=== PATIENT | male | born 1950 | race Caucasian/White ===

== ENCOUNTER 2016-08-04 12:37 | Emergency (ER) | payer MEDICARE ==
[~2016-08-04 12:37] MED LIST: ALLOPURINOL300 MG PO; LEVAQUIN750 MG PO; LISINOPRIL-HCT1 EAC1 PO; NAPROXEN500 MG PO; PRILOSEC20 MG PO; TOPROL XL 50 MG50 MG PO; ZOFRAN4 MG PO
== END 2016-08-04 16:48 | disposition home or self-care (01) ==
LOC: FER 12:37
DX: M54.42 Lumbago with sciatica, left side (principal); M47.816 Spondylosis without myelopathy or radiculopathy, lumbar region; I25.2 Old myocardial infarction; I11.9 Hypertensive heart disease without heart failure; M19.90 Unspecified osteoarthritis, unspecified site; M10.9 Gout, unspecified; M06.9 Rheumatoid arthritis, unspecified; Z88.8 Allergy status to other drugs, medicaments and biological substances
CPT/HCPCS: 72110; J1100; J1885

== ENCOUNTER 2020-07-15 14:44 | Emergency (ER) | payer MEDICARE ==
[~2020-07-15 14:44] MED LIST changes: +PLAQUENIL200 MG PO; +TERAZOSIN HCL10 MG PO; +ZESTRIL2.5 MG PO
== END 2020-07-15 17:23 | disposition home or self-care (01) ==
LOC: FER 14:44
DX: M54.12 Radiculopathy, cervical region (principal); I10 Essential (primary) hypertension; Z87.891 Personal history of nicotine dependence; Z88.8 Allergy status to other drugs, medicaments and biological substances; Z79.899 Other long term (current) drug therapy
CPT/HCPCS: 72125

== ENCOUNTER 2021-08-17 19:12 | Emergency (ER) | payer MEDICARE ==
[2021-08-17 20:50] LABS: BASOPHIL 0.5 % (0-2); EOSINOPHIL 1.9 % (0-7); HGB 12.9 g/dl (13.2-18.0); LYMPHOCYTE 11.4 % (15-48); MCHC 34.9 g/dL (32.0-36.0); MCV 94.6 fL (78.0-100.0); MONOCYTE 5.8 % (0-12); MPV 10.5 fL (6.0-9.5); NEUTROPHIL 80.3 % (41-80); NRBC 0; PLT 183 K/uL (150-400); RBC 3.91 M/uL (4.70-6.00); RDW 13.2 % (11.5-14.0); WBC 7.5 K/uL (4.0-10.5)
[2021-08-17 21:17] LABS: BUN/CREAT RATIO (CALC) 16.8 RATIO; CREATININE 1.13 mg/dL (0.67-1.17); POTASSIUM 3.9 mmol/L (3.5-5.1)
[2021-08-17] MEDS ORDERED: MEDROL 4MG DOSEP4 MG PO (21:51)
== END 2021-08-17 22:20 | disposition home or self-care (01) ==
LOC: FER 19:12
PROVIDERS: Internal Medicine
DX: M54.12 Radiculopathy, cervical region (principal); M25.511 Pain in right shoulder; F10.20 Alcohol dependence, uncomplicated
CPT/HCPCS: 36415; 72125; 73030; 80048; 84443; 84484; 85025; 93005; 96372; J1170; J2930

== ENCOUNTER → 2022-01-20 | Day surgery (SDC) | payer OTHER ==
[~2022-01-20] VITALS: Ht 175.3 cm; Wt 122.5 kg
[~2022-01-20] MED LIST changes: +ASPIRIN325 MG PO; +CHLORTHALIDONE25 MG PO; +FEOSOL325 MG PO; +MEDROL 4MG DOSEP4 MG PO; +NEURONTIN300 MG PO; +OXYCODONE-ACET1 EAC1 PO
[2022-01-20 11:40] LABS: HCT 34.4 % (42.0-52.0); HGB 11.2 g/dl (13.2-18.0); MCH 30.6 pg (25.0-31.0); MCHC 32.6 g/dL (32.0-36.0); MPV 10.4 fL (6.0-9.5); RBC 3.66 M/uL (4.70-6.00); RDW 14.3 % (11.5-14.0); WBC 7.7 K/uL (4.0-10.5)
[2022-01-20 11:59] LABS: BUN/CREAT RATIO (CALC) 16.9 RATIO; CREATININE 0.83 mg/dL (0.67-1.17); POTASSIUM 4.3 mmol/L (3.5-5.1)
== END | disposition home or self-care (01) ==
LOC: FAS 07:00
PROVIDERS: Legal Medicine
DX: G56.01 Carpal tunnel syndrome, right upper limb (principal); G56.21 Lesion of ulnar nerve, right upper limb; Z88.8 Allergy status to other drugs, medicaments and biological substances
CPT/HCPCS: 36415; 80048; J0690; J1100; J1885; J2250; J2405; J2704; J2795; J3010; J7120